=== PATIENT | male | born 1995 ===

== ENCOUNTER 2018-09-08 06:34 | Day surgery (SDC) | payer BC, OTHER ==
[~2018-09-08 06:34] MED LIST: Buffered Lidocaine 1% SYRIN* 1 ML/SYRINGE INTRADERM ONE; Lactated Ringers 1000 ML Bag* 1,000 ML IV SCH
[2018-09-08] MEDS ORDERED: ceFAZolin 2 GM in NS PREMIX(*) 2 GM/100 ML BAG IVPB ONE ×2 (06:51→06:53)
[2018-09-08] MEDS ORDERED: Lidocaine 1% MPF wEPI 200,000* 30 ML SDV ONE (07:01)
[2018-09-08] MEDS ORDERED: Bupivacaine 0.25% SDV* 30 ML ONE (07:01)
[2018-09-08] MEDS ORDERED: Propofol* 10 MG/ML 20 ML BTL ONE ×2 (07:21→09:43)
[2018-09-08] MEDS ORDERED: Dexamethasone IV* 4 MG/ML 1 ML (4 MG) ONE (07:21)
[2018-09-08] MEDS ORDERED: Ondansetron INJ* 2 MG/ML VIAL ONE ×2 (07:21→09:03)
[2018-09-08] MEDS ORDERED: fentaNYL* 50 MCG/ML 2 ML VIAL (100 MCG VIAL) ONE ×2 (07:21→10:08)
[2018-09-08] MEDS ORDERED: Midazolam* 1 MG/ML 5 ML VIAL (5 MG) ONE (07:21)
[2018-09-08] MEDS ORDERED: fentaNYL* 50 MCG/ML 2 ML VIAL (100 MCG VIAL) IV PRN (08:27)
[2018-09-08] MEDS ORDERED: oxyCODONE/Acetamin 5/325 MG* TAB PO PRN (08:27)
[2018-09-08] MEDS ORDERED: Ondansetron INJ* 2 MG/ML VIAL IV PRN (08:27)
[2018-09-08] MEDS ORDERED: Naloxone* 0.4 MG/ML 1 ML VIAL IV PRN (08:27)
[2018-09-08] MEDS ORDERED: DiMENhydriNATE IV* 50 MG/ML VIAL IV PUSH PRN (08:27)
[2018-09-08] MEDS ORDERED: Acetaminophen TAB* 325 MG PO PRN (08:27)
[2018-09-08] MEDS ORDERED: Ketorolac INJ* 30 MG/ML 1 ML VIAL ONE (09:03)
[2018-09-08] MEDS ORDERED: Ropivacaine* 2 MG/ML 20 ML VIAL (0.2%) ONE (09:30)
[2018-09-08] MEDS ORDERED: oxyCODONE/Acetamin 5/325 MG* TAB ONE (10:25)
[2018-09-08 11:13] VITALS: BP 148/73
--- NOTE | 2018-09-08 12:41 | OP ---
CC: PCP OPERATIVE REPORT: DATE OF OPERATION: 09/08/18 DATE OF : [birth year] SURGEON: Deneen Flores MD INVESTMENT TRADER: MARI Mccormick Hairspring Setter was needed for the entirety of the case to help with positioning, retraction, and utilized throughout all portions of the case. ANESTHESIOLOGIST: Dr. Neville. ANESTHESIA: General. PRE-OP DIAGNOSES: Right knee grade 3 anterior cruciate ligament rupture and possible meniscus tear. POST-OP DIAGNOSIS: Right knee grade 3 anterior cruciate ligament rupture. OPERATIVE PROCEDURE: Right knee arthroscopy with ACL reconstruction using quadriceps autograft. 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 He has a history of Asha-Schlatter 's; therefore, after extensive discussion of risks and benefits of surgery versus nonoperative treatment, he has elected to proceed with surgical treatment. We talked about graft options and I have recommended quad autograft. Risks and benefits were discussed at length, included but not limited to, bleeding; infection; damage to nerves, vessels, surrounding structures; wound nonhealing; persistent pain; need for further surgery; scarring; stiffness; incomplete relief of symptoms; risk of anesthesia. COMPLICATIONS: None. ESTIMATED BLOOD LOSS: Minimal. DESCRIPTION OF PROCEDURE: The patient was greeted in the preoperative area by the attending surgeon. Correct extremity was marked and consent was confirmed. The patient was brought back to the operating suite, was placed in the supine position on the operating table, then underwent general anesthesia and LMA intubation, after which he was properly positioned on the bed. A lateral post was positioned. A kirk bag was placed to keep the knee at 90 degrees. The right leg was prepped and draped in the usual sterile fashion beginning with chlorhexidine soap, scrub, and alcohol wipe, and a final prep with ChloraPrep. After appropriate surgery pause indicating side, site, procedure, and administration of antibiotics, the knee was intra-articularly injected with 1% lidocaine with epi. A sterile tourniquet was placed. The leg exsanguinated and the tourniquet inflated to 250 mmHg. Tourniquet time was 23 minutes. At this point, a 15 blade was used to make an incision in line with the quadriceps tendon. Soft tissues were carefully extracted to expose the paratenon, which was then incised within the center. 9 mm of tendon was then harvested in full- thickness flaps for a length of about 7 cm. A bone block was harvested distally for a length of about 9 x 23 mm. This was harvested. The graft was then removed proximally. Graft was then prepared on the back table by the automotive service assistant. The quadriceps was then closed in a [id number] fashion with interrupted 0 Vicryl to try to close down the defect. Once this was done, the tourniquet was deflated and attention was directed to the scope. The lateral portal was made. The scope was then positioned into the joint. Joint was examined. There were grade 0 changes to the patellofemoral joint. Medial and lateral gutters were intact. There was significant fat pad anteriorly. The ACL was torn right at the femoral insertion. There was a small strand of tissue that was still attached there. The anteromedial portal was made using 18-gauge needle for localization. After this was done, the synovectomy was done of the abundant fat pad. The compartments were then examined. A diagnostic scope was done. The medial femoral condyle had grade 0 changes, medial plateau grade 0 changes. Medial meniscus was intact. The knee was placed in [id number] and the lateral compartment was examined. The lateral meniscus was intact. The lateral plateau had fissuring and lateral femoral condyle had grade 0 to 1 changes. The meniscus appeared intact. The knee was then placed in 90 degrees and then attention was directed to the ACL. The stump was then debrided back using the shaver and the biters. The lateral wall was repaired using the electrocautery device and the shaver. Once this was done, a starting awl was then used to roxana the provisional start point of femoral tunnel. The scope was then repositioned from the lateral to the medial tunnel to visualize roxana as a reference point. Attention was then directed to the tibial tunnel and the tip-to-tip guide was placed about 52 degrees in the center of the footprint. A separate incision was made along the medial aspect of the tibia. After this was done, the guidewire was placed. Once this was properly positioned, a size 10-mm full- bore reamer was used to ream the tunnel, drill the tunnel. All excess bone and debris were collected for later bone grafting the patellar defect. Care was placed to prevent fluid egress. The tunnel was then rasped. A shaver was used to remove any excess soft tissue and attention was directed to the femoral tunnel. Knee was then hyperflexed to about 130 degrees. A Ennis [employer] Nephew straight guide was then placed in the center of the footprint and a Beath pin was then drilled through the center of the footprint, then overdrilled with a size 9-mm low-profile reamer to a depth of about 25 to 27 mm. The tunnel was found to have a good back wall. The shaver was used to remove any excess bone and debris. The tunnel was then notched using a special library librarian. A #2 Ethibond suture was then placed to the eyelet of the Beath pin, passed through the wound laterally, and then anterograde to tunnel. The graft, which had been placed on tension on the back table, was then brought to the field, then placed under direct and arthroscopic visualization to be well-seated in the femoral tunnel. This was then secured with a 7 x 20 mm Sofsilk screw and then the knee was then taken through full extension and found to have no impingement anteriorly. The knee was then cycled approximately 20 times with tension on the tibial suture to remove any creep or stretch in the graft and check the placement of the tissue. The scope was brought back to the joint and the graft was examined and found to have good position. At this point, the scope was then removed and the knee was placed in about 20 to 30 degrees of flexion with tension on the tibial sutures. The nitinol wire was then used to place a 10 x 25 mm BioComposite screw with excellent purchase. The knee was taken through full range of motion and Tasha was assessed and found to be stable. The knee was placed in 90 degrees. The scope was brought to the joint and the graft was found to be in good position. Final images were obtained. The wounds were copiously irrigated with sterile saline. The portals were closed with 3-0 nylon. The tibial wound was closed with 3-0 Monocryl in a layered fashion. The excess bone was placed in the patellar defect and oversewn with 0 Vicryl. The skin was closed in layers with 3-0 Monocryl and kayli. Sterile dressings were applied as well as a cryo/Cuff and a hinged knee brace locked in extension. The patient was then awoken from anesthesia and transferred to the PACU in stable condition. POSTOPERATIVE PLAN: He will be weightbearing as tolerated. He will start therapy this week. He will be discharged on pain medication. DVT prophylaxis was considered, but deferred due to no previous personal or family history. I will see the patient back in 6 to 8 days. [id number]/[facility] #: [id number] NANY
== END 2018-09-08 11:07 | disposition home or self-care (01) ==
LOC: OREAST 06:34
PROVIDERS: ATTEND Orthopaedic Surgery
DX: S83.511A Sprain of anterior cruciate ligament of right knee, initial encounter (principal); X50.0XXA Overexertion from strenuous movement or load, initial encounter; Y93.69 Activity, other involving other sports and athletics played as a team or group; Y92.328 Other athletic field as the place of occurrence of the external cause
CPT/HCPCS: A9270-GY; C1713; J0690; J1100; J1885; J2001; J2250; J2405; J2704; J2795; J3010

== ENCOUNTER 2018-09-19 17:08 | Emergency (ER) | payer BC, OTHER ==
--- NOTE | 2018-09-19 19:13 | ED ---
Lower Extremity - HPI Summary HPI Summary: 23 year old male presents with swelling and ecchymosis to the right calf pain today. He had ACL surgery on the first. He was going PT and PT noticed the bruising. He is nonsmoker. No family history of blood clots. No recent travel. No chest pain or shortness of breath. He has been able to place weight on the area. No increased pain in the calf muscle. - History of Current Complaint Chief Complaint: EDExtremityLower Stated Complaint: "BRUISING, AND SWELLING POS BLOOD CLOT" PER PT Time Seen by Provider: 09/19/18 18:44 Pain Intensity: 2 - Allergies/Home Medications Allergies/Adverse Reactions: Allergies Allergy/AdvReac Type Severity Reaction Status Date / Time No Known Allergies Allergy Verified 09/19/18 17:12 PMH/Surg Hx/FS Hx/Imm Hx Endocrine/Hematology History: Denies: Hx Diabetes Cardiovascular History: Denies: Hx Hypertension, Hx Pacemaker/ICD, Other Cardiovascular Problems/ Disorders Respiratory History: Reports: Hx Asthma - ok for 10 yrs History: Denies: Hx Renal Disease Sensory History: Reports: Hx Contacts or Glasses - contacts Denies: Hx Hearing Aid Opthamlomology History: Reports: Hx Contacts or Glasses - contacts Psychiatric History: Denies: Hx Panic Disorder - Surgical History Surgery Procedure, Year, and Place: wisdom teeth, 2014, [facility] Hx Anesthesia Reactions: No Infectious Disease History: No Infectious Disease History: Denies: Traveled Outside the [place] in Last 30 Days - Family History Known Family History: Negative: Blood Disorder - Social History Alcohol Use: Occasionally Alcohol Amount: 2 per month Substance Use Type: Reports: None Smoking Status (MU): Never Smoked Tobacco Review of Systems Negative: Fever Negative: Chest Pain Negative: Shortness Of Breath Positive: Edema. Negative: Myalgia Positive: Bruising All Other Systems Reviewed And Are Negative: Yes Physical Exam Triage Information Reviewed: Yes Vital Signs On Initial Exam: Initial Vitals Temp Pulse Resp BP Pulse Ox 97.9 F 77 16 136/74 95 09/19/18 17:11 09/19/18 17:11 09/19/18 17:11 09/19/18 17:11 09/19/18 17:11 Vital Signs Reviewed: Yes Appearance: Positive: Well-Appearing Skin: Positive: Warm, Dry, Other - ecchymosis to right calf, surgical site clear dry intact Head/Face: Positive: Normal Head/Face Inspection Eyes: Positive: Normal, Conjunctiva Clear ENT: Positive: Pharynx normal Respiratory/Lung Sounds: Positive: Clear to Auscultation, Breath Sounds Present Cardiovascular: Positive: Normal, RRR Musculoskeletal: Positive: Strength/ROM Intact - right calf, Other - good pulses Neurological: Positive: Normal Psychiatric: Positive: Normal Diagnostics - Vital Signs Vital Signs Temp Pulse Resp BP Pulse Ox 09/19/18 17:11 97.9 F 77 16 136/74 95 - Laboratory Lab Statement: Any lab studies that have been ordered have been reviewed, and results considered in the medical decision making process. - Ultrasound No standard instances Ultrasound Interpretation Completed By: Radiologist Summary of Ultrasound Findings: IMPRESSION: No acute findings. No evidence of deep vein thrombosis. Lower Extremity Course/Dx - Course Course Of Treatment: 23 year old male presents with swelling and ecchymosis to the right calf pain today. He had ACL surgery on the first. He was going PT and PT noticed the bruising. He is nonsmoker. No family history of blood clots. No recent travel. No chest pain or shortness of breath. He has been able to place weight on the area. No increased pain in the calf muscle. On exam ecchymosis of the calf noted. Neurovascular intact. Ultrasound was negative for DVT. Told to ice and elevate. Patient understands agrees with plan. - Diagnoses Differential Diagnosis/HQI/PQRI: Positive: Contusion, DVT, Sprain Provider Diagnoses: Bruising Discharge - Sign-Out/Discharge Documenting (check all that apply): Patient Departure Patient Received Moderate/Deep Sedation with Procedure: No - Discharge Plan Condition: Good Disposition: HOME Patient Education Materials: R.I.C.E. Treatment (ED) Referrals: Juice Toth DO [Primary Care Provider] - Additional Instructions: Take Tylenol or ibuprofen every 6 hours as needed for pain Apply ice, rest, elevate Follow up with primary care physician within 5 days Return to ED if develop any new or worsening symptoms - Billing Disposition and Condition Condition: GOOD Disposition: Home
[2018-09-19 19:22] VITALS: BP 135/93
== END 2018-09-19 19:22 | disposition home or self-care (01) ==
LOC: ED 17:08
DX: R23.3 Spontaneous ecchymoses (principal); M79.661 Pain in right lower leg
CPT/HCPCS: 99281

== ENCOUNTER 2019-06-15 10:18 | Day surgery (SDC) | payer BC, OTHER ==
[2019-06-15] MEDS ORDERED: ceFAZolin 2 GM PREMIX in ORs 2 GM/50 ML BAG ONE (10:30)
[2019-06-15] MEDS ORDERED: Ropivacaine 0.2% * 2 MG/ML VIAL ONE (11:11)
[2019-06-15] MEDS ORDERED: Lidocaine 1% w EPI 1:200,000* SDV 30 ML VIAL ONE (11:12)
[2019-06-15] MEDS ORDERED: Propofol* 10 MG/ML 20 ML BTL ONE (11:26)
[2019-06-15] MEDS ORDERED: Dexamethasone IV* 4 MG/ML 1 ML (4 MG) ONE (11:26)
[2019-06-15] MEDS ORDERED: Midazolam* 1 MG/ML 2 ML VIAL (2 MG) ONE (11:27)
[2019-06-15] MEDS ORDERED: fentaNYL* 50 MCG/ML 2 ML VIAL (100 MCG VIAL) ONE (11:28)
[2019-06-15] MEDS ORDERED: Naloxone* 0.4 MG/ML 1 ML VIAL IV PRN (12:00)
[2019-06-15] MEDS ORDERED: HYDROmorphone INJ1* 1 MG/ML SYRINGE IV PRN (12:00)
[2019-06-15] MEDS ORDERED: oxyCODONE/Acetamin 5/325 MG* TAB PO PRN (12:00)
[2019-06-15] MEDS ORDERED: fentaNYL* 50 MCG/ML 2 ML VIAL (100 MCG VIAL) IV PRN (12:00)
[2019-06-15] MEDS ORDERED: Ondansetron INJ* 2 MG/ML VIAL IV PRN (12:00)
[2019-06-15] MEDS ORDERED: Ketorolac INJ* 30 MG/ML 1 ML VIAL ONE (12:19)
[2019-06-15 13:11] VITALS: BP 149/89
--- NOTE | 2019-06-16 18:45 | OP ---
CC: Dr. Toth; Dr. Jaime, [facility] * DATE OF OPERATION: 06/15/19 - [facility] DATE OF : [birth year] SURGEON: Deneen Flores MD JUNIOR PROGRAMMER: None available. PRE-OP DIAGNOSIS: Right knee ankylosis and stiffness. POST-OP DIAGNOSIS: Right knee ankylosis and stiffness. OPERATIVE PROCEDURE: Right knee arthroscopy with lysis of adhesions, manipulation under anesthesia. COMPLICATIONS: None. ESTIMATED BLOOD LOSS: Minimal. INDICATIONS: Marcelino Joseph is a 24-year-old male who underwent a previous ACL reconstruction with quad autograft on 09/08/18. He had stiffness with range of motion, but he is able to get his motion back; however, he had persistent pain with full extension. Initially, we thought his hardware was bothering as well, but it stopped hurting 2 months ago and had absorbed. He had an MRI demonstrating the ACL was intact. He had significant scar. There was concern for a possible cyclops lesion that had caused his pain with full extension. After extensive discussion of the risks and benefits of operative versus nonoperative treatment, he has elected to proceed with surgical treatment. Risks included, but are not limited to bleeding; infection; damage to nerves, vessels, surrounding structures; wound nonhealing; persistent pain; need for further surgery; scarring; stiffness; incomplete relief of symptoms; risks of anesthesia. DESCRIPTION OF PROCEDURE: The patient was greeted in the preoperative area by the attending surgeon. Correct extremity was marked and consent was confirmed. The patient was brought back to the operating suite and was placed in the supine position on the operating table. He then underwent general anesthesia and endotracheal intubation. The right leg was prepped and draped in the usual fashion with chlorhexidine soap, alcohol wipe, and final prep or chloroprep. After appropriate surgical pause including site, side and procedure, the knee was intra-articularly injected with 1% lidocaine with epi. The anterolateral portal was made sharply with an 11-blade. The scope was introduced. There was abundant scar tissue that was present. The anteromedial portal was then made in an outside-in fashion. The shaver was used to debride back the abundant thick scar tissue. 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 The patellofemoral joint was difficult to examine and therefore the scar tissue had to be released. Once this was released, the patella was able to be mobilized anteromedially and around the infrapatellar pouch. The biters and bennett were then used to debride back the large cyclops lesion. The ACL was visualized and found to be intact and in good position. PCL was intact. The medial and lateral compartments were intact without any obvious arthritic change. The medial and lateral menisci were intact. Once the debridement was completed, the knee was taken through range of motion. I was able to obtain full extension and flexion to about 140 degrees. He had a stable Tasha. The final images were obtained. The wounds were copiously irrigated with sterile saline. Portals were closed with 3-0 nylon. The wounds were intra-articularly and locally injected with 0.2% ropivacaine. Sterile dressings were applied and a Cryo/Cuff. He was awoken from anesthesia and transferred to the PACU in stable condition. POSTOPERATIVE PLAN: He will be weightbearing as tolerated. Range of motion as tolerated. He will start working with therapy and scar massage within the first 2 days. I will see the patient back in 10 to 14 days. [id number]/[facility] #: [id number] NANY
== END 2019-06-15 13:20 | disposition home or self-care (01) ==
LOC: OREAST 10:18
PROVIDERS: ATTEND Orthopaedic Surgery
DX: M25.661 Stiffness of right knee, not elsewhere classified (principal); J45.909 Unspecified asthma, uncomplicated
CPT/HCPCS: J0690; J1100; J1885; J2001; J2250; J2704; J2795; J3010